=== PATIENT | female | born 1955 | race Caucasian/White ===

== ENCOUNTER 2021-07-01 08:39 | Outpatient (CLI) | payer MEDICARE, BC ==
[2021-07-01] MEDS ORDERED: Iopamidol 370 76% 100 ML VIAL ONE (12:50)
== END 2021-07-01 08:40 | disposition home or self-care (01) ==
LOC: BURCT 08:39
PROVIDERS: ATTEND Family Medicine
DX: R31.9 Hematuria, unspecified (principal); F17.210 Nicotine dependence, cigarettes, uncomplicated; R63.4 Abnormal weight loss; R91.8 Other nonspecific abnormal finding of lung field; N28.89 Other specified disorders of kidney and ureter
CPT/HCPCS: 71260; 74177; Q9967

== ENCOUNTER 2021-10-03 22:16 | Emergency (ER) | payer MEDICARE, BC | END 2021-10-03 22:55 | disposition home or self-care (01) | LOC: BURERS 22:16 | DX: R31.0 Gross hematuria (principal); F17.210 Nicotine dependence, cigarettes, uncomplicated | CPT/HCPCS: 99281 ==

== ENCOUNTER 2023-02-03 08:54 | Outpatient (CLI) | payer MEDICARE, BC ==
[2023-02-03] MEDS ORDERED: Iopamidol 370 76% 100 ML VIAL ONE (12:54)
== END 2023-02-03 08:55 | disposition home or self-care (01) ==
LOC: BURCT 08:54
PROVIDERS: ATTEND Urology
DX: Z01.818 Encounter for other preprocedural examination (principal); C67.2 Malignant neoplasm of lateral wall of bladder; R91.1 Solitary pulmonary nodule; R31.0 Gross hematuria; I86.8 Varicose veins of other specified sites
CPT/HCPCS: 36415; 71250; 74178; 82565; Q9967